=== PATIENT | male | born 1990 | race Caucasian/White ===

== ENCOUNTER 2019-07-17 15:22 | Emergency (ER) | payer MEDICARE ==
[~2019-07-17] VITALS: Ht 180.3 cm; Wt 81.8 kg
[2019-07-17 15:32] VITALS: BP 128/77; Ht 180.3 cm; Wt 81.8 kg
[2019-07-17 16:08] LABS: BASOPHILS 0.5 % (0-2); EOSINOPHILS 0.5 % (0-7); HEMATOCRIT 45.1 % (42.0-54.0); HEMOGLOBIN 15.6 g/dL (13.5-17.5); IMMATURE GRANULOCYTES 0.1 % (0-5); LYMPHOCYTES 26.4 % (15-50); MCH 30.2 pg (26.0-34.0); MCHC 34.6 g/dL (31.0-37.0); MCV 87.2 fL (80.0-100.0); MEAN PLATELET VOLUME 9.1 fL (7.4-10.4); MONOCYTES 5.7 % (2-11); NEUTROPHILS 66.8 % (40-80); PLATELET COUNT 249 10x3/uL (130-400); RBC 5.17 10x6/uL (4.20-6.10); RDW 13.1 % (11.5-14.5); WBC 7.7 10x3/uL (4.8-10.8)
--- NOTE | 2019-07-17 16:10 | NUR ---
DOCTOR JAMES NOTIFIED AND REVIEWED PT'S BEHAVIOR AND ASSESSMENT. PT IS A HIGH RISK. SITTER ORDERED AND AT BEDSIDE. SAFETY PLAN INITIATED. RESOURCES GIVEN AND HE VERBALIZES UNDERSTANDING.
[2019-07-17 16:18] LABS: CALC OSMOLALITY 285 mosm/kg (275-300); CARBON DIOXIDE 29.9 mmol/L (21.0-32.0); CHLORIDE - SERUM 105 mmol/L (98-107); CREATININE - SERUM 0.9 mg/dL (0.6-1.3); GLUCOSE 77 mg/dL (74-106); POTASSIUM - SERUM 3.7 mmol/L (3.5-5.1); SODIUM 143 mmol/L (136-145); UREA NITROGEN 17 mg/dL (7-18); eGFR NON AFRICAN AMERICAN > 90 mL/min (90-120)
[2019-07-17 16:19] LABS: UDS - AMPHET NEGATIVE QUAL (NEGATIVE); UDS - BARB NEGATIVE QUAL (NEGATIVE); UDS - BENZO NEGATIVE QUAL (NEGATIVE); UDS - COCAINE NEGATIVE QUAL (NEGATIVE); UDS - OPIATE NEGATIVE QUAL (NEGATIVE); UDS - PCP NEGATIVE QUAL (NEGATIVE); UDS - THC NEGATIVE QUAL (NEGATIVE)
[2019-07-17 16:26] LABS: ALBUMIN 3.8 g/dL (3.4-5.0); ALKALINE PHOSPHATASE 60 U/L (30-120); ALT (SGPT) 17 U/L (10-68); BILIRUBIN - TOTAL 0.45 mg/dL (0.2-1.3); MAGNESIUM - SERUM 1.6 mg/dL (1.8-2.4); PROTEIN - SERUM 7.4 g/dL (6.4-8.2)
[2019-07-17 16:42] LABS: GLUCOSE 1000 mg/dL (NEGATIVE); KETONE MODERATE mg/dL (NEGATIVE); NITRITE NEGATIVE (NEGATIVE); SPECIFIC GRAVITY 1.025 (1.005-1.020); UROBILINOGEN NORMAL (NORMAL)
[2019-07-17 16:43] LABS: BILIRUBIN NEGATIVE (NEGATIVE)
== END 2019-07-17 20:30 ==
LOC: D.ER 15:22
PROVIDERS: Emergency Medicine
DX: R45.851 Suicidal ideations (principal); E10.9 Type 1 diabetes mellitus without complications; E83.42 Hypomagnesemia